=== PATIENT | male | born 1930 | race Caucasian/White ===

== ENCOUNTER 2018-07-09 20:55 | Inpatient (IN) ==
[2018-07-09] MEDS ORDERED: diphenhydrAMINE CAP 25 MG CAPSULE PO PRN (22:44)
[2018-07-09] MEDS ORDERED: ZALEPLON 5 MG CAPSULE PO PRN (22:44)
[2018-07-09] MEDS ORDERED: MAGNESIUM SULF RIDER 2 GM in PREMIX 1 EACH IV PRN (22:44)
[2018-07-09] MEDS ORDERED: ONDANSETRON 4 MG/2 ML VIAL IV PRN (22:44)
[2018-07-09] MEDS ORDERED: MAGNESIUM SULF RIDER 4 GM in PREMIX 1 EACH IV PRN (22:44)
[2018-07-09] MEDS ORDERED: NICOTINE 21 MG/24 HR PATCH TRANSDERM PRN (22:44)
[2018-07-09] MEDS ORDERED: MORPHINE 4 MG/1 ML VIAL IV PRN (22:44)
[2018-07-09] MEDS ORDERED: NITROGLYCERIN SL 0.4 MG TABLET SL PRN (22:44)
[2018-07-09] MEDS ORDERED: ACETAMINOPHEN 325 MG TABLET PO PRN (22:44)
[2018-07-09 23:38] LABS: Basophils % 0.4 % (0.0-0.8); Eosinophils # 0.3 10*3/uL (0.0-0.87); Eosinophils % 3.9 % (0.00-10.9); Hematocrit 38.9 VOL% (42.0-52.0); Hemoglobin 13.2 GM/DL (14.0-18.0); Immature Granulocytes % 0.5 %; Immature Granulocytes Absolute 0.04 #; Lymphocytes # 1.3 10*3/uL (1.4-4.0); Lymphocytes % 17.6 % (21.2-54.2); Mean Corpuscular HGB Conc 33.9 GM/DL (32-36); Mean Corpuscular Hemoglobin 31 PG (27-34); Mean Corpuscular Volume 91.1 FL (87-102); Monocytes # 0.6 10*3/uL (0.11-0.8); Monocytes % 8.6 % (1.7-12.7); Neutrophils # 5.2 10*3/uL (1.4-7.4); Platelet Count 145 T/CUMM (130-400); Red Blood Count 4.27 MC/CUMM (3.8-5.5); Red Cell Distribution Width 12.9 % (9.3-17.3); White Blood Count 7.5 T/CUMM (4-12)
[2018-07-09] MEDS ORDERED: traZODone 50 MG TABLET PO SCH (23:45)
[2018-07-09] MEDS ORDERED: NAPROXEN 500 MG TABLET PO PRN (23:47)
[2018-07-09 23:57] LABS: PT Patient Result 11.2 SECS
[2018-07-10 00:06] LABS: Bilirubin,Total 0.9 MG/DL (0.2-1.0); Calcium 8.2 MG/DL (8.5-10.1); Osmolality,Calculated 280.3 MOS/KG (273-304); Risk Ratio 2.72; Thyroid Stimulating Hormone 7.28 uIU/ml (0.358-3.74); Total Protein 6.8 G/DL (6.4-8.3)
[2018-07-10] MEDS: LISINOPRIL 20 MG TABLET PO SCH ×2 (00:13→09:49)
[2018-07-10] MEDS: ALBUTEROL/IPRATROPIUM 3 ML NEB RESP TX SCH ×3 (01:03→13:22)
[2018-07-10] MEDS: POTASSIUM CHLORIDE 20 MEQ TABLET PO PRN ×4 (01:10→09:49)
[2018-07-10] MEDS ORDERED: PANTOPRAZOLE 40 MG TABLET PO SCH (09:00)
[2018-07-10] MEDS ORDERED: DONEPEZIL 10 MG TABLET PO SCH (09:00)
[2018-07-10] MEDS ORDERED: ENOXAPARIN 40 MG/0.4 ML SYRINGE SUBCUT SCH (09:00)
[2018-07-10] MEDS ORDERED: ASPIRIN EC 81 MG TABLET PO SCH (10:30)
[2018-07-10 11:26] LABS: Troponin I 0.019 NG/ML (0.00-0.045)
[2018-07-10] MEDS ORDERED: traMADol 50 MG TABLET PO SCH (14:30)
[2018-07-10] MEDS ORDERED: ACETAMINOPHEN 325 MG TABLET PO SCH (14:30)
[2018-07-10] MEDS ORDERED: GABAPENTIN 100 MG CAPSULE PO SCH (15:00)
[2018-07-10 16:03] VITALS: BP 146/69
[2018-07-10 17:25] LABS: Apearance,Urine Slightly Hazy (Clear); Bilirubin,Urine Negative (Negative); Blood, Urine Negative (Negative); Glucose,Urine (UA) Negative (Negative); Hyaline Casts,Urine 1 /LPF (0-3); Ketones,Urine Negative (Negative); Mucus,Urine Occasional /LPF (Occasional); Nitrite,Urine Negative (Negative); Protein,Urine Negative; Squamous Epithelial Cell,Urine Occasional /HPF (0-10); Urine Color Yellow (Yellow); Urine Urobilinogen < 2.0 EU/DL (0.2-1.0); WBC,Urine 1 /HPF (0-6)
[2018-07-10] MEDS ORDERED: ATORVASTATIN 20 MG TABLET PO SCH (21:00)
== END 2018-07-10 17:31 | disposition home health service (06) | DRG 313 ==
LOC: N.TELEN 22:17 → SUATTDRO 22:17
PROVIDERS: ADMIT Internal Medicine; ATTEND Internal Medicine

== ENCOUNTER 2019-03-25 09:21 | Inpatient (IN) ==
[2019-03-25 09:59] LABS: Basophils % 0.5 % (0.0-0.8); Eosinophils # 0.3 10*3/uL (0.0-0.87); Eosinophils % 5.4 % (0.00-10.9); Hematocrit 41.1 VOL% (42.0-52.0); Hemoglobin 13.4 GM/DL (14.0-18.0); Immature Granulocytes % 1.1 %; Immature Granulocytes Absolute 0.06 #; Lymphocytes % 17.5 % (21.2-54.2); Mean Corpuscular HGB Conc 32.6 GM/DL (32-36); Mean Corpuscular Volume 94.3 FL (87-102); Mean Platelet Volume 8.6 FL (9.6-12.0); Monocytes % 8.6 % (1.7-12.7); Neutrophils % 66.9 % (38.7-73.9); Platelet Count 207 T/CUMM (130-400); Red Blood Count 4.36 MC/CUMM (3.8-5.5); Red Cell Distribution Width 12.9 % (9.3-17.3); White Blood Count 5.6 T/CUMM (4-12)
[2019-03-25 10:08] LABS: PT Patient Result 10.4 SECS; Partial Thromboplastin Time 26.1 SECS (0-40)
[2019-03-25 10:21] LABS: Alanine Aminotransferase 19 U/L (16-61); Albumin 3.2 G/DL (3.4-5.0); Alkaline Phosphatase 67 U/L (45-117); Aspartate Amino Transferase 16 U/L (0-37); Bilirubin,Total < 0.39 MG/DL (0.2-1.0); Blood Urea Nitrogen 15 MG/DL (7-18); Calcium 8.8 MG/DL (8.5-10.1); Glucose 97 MG/DL (74-106); Osmolality,Calculated 283.1 MOS/KG (273-304); Total Protein 7.4 G/DL (6.4-8.3)
[2019-03-25] MEDS ORDERED: ASPIRIN 325 MG TABLET PO STA (10:42)
[2019-03-25] MEDS ORDERED: ENOXAPARIN 100 MG/ML SYRINGE SUBCUT STA (10:42)
[2019-03-25] MEDS ORDERED: NITROGLYCERIN 2% OINT 1 INCH/GM PACK TOP STA (10:42)
[2019-03-25] MEDS ORDERED: MORPHINE 4 MG/1 ML VIAL IV STA (10:42)
[2019-03-25] MEDS ORDERED: ENOXAPARIN 120 MG/0.8 ML SYRINGE SUBCUT ONE (11:14)
[2019-03-25] MEDS ORDERED: BISACODYL 5 MG TABLET PO PRN (14:29)
[2019-03-25] MEDS ORDERED: DOCUSATE SODIUM 100 MG CAPSULE PO PRN (14:29)
[2019-03-25] MEDS ORDERED: LACTULOSE 20 GM/30 ML UDCUP PO PRN (14:29)
[2019-03-25] MEDS ORDERED: guaiFENesin/DM ER 600-30 MG TABLET PO PRN (14:29)
[2019-03-25] MEDS ORDERED: diphenhydrAMINE CAP 25 MG CAPSULE PO PRN (14:29)
[2019-03-25] MEDS ORDERED: ACETAMINOPHEN 325 MG TABLET PO PRN ×2 (14:29)
[2019-03-25] MEDS: SODIUM CHLORIDE 0.9% 1,000 ML IV SCH (15:41)
[2019-03-25] MEDS ORDERED: traZODone 50 MG TABLET PO SCH (21:00)
[2019-03-25] MEDS: MEMANTINE 10 MG TABLET PO SCH (21:38)
[2019-03-26] MEDS: SODIUM CHLORIDE 0.9% 1,000 ML IV SCH ×2 (04:52→11:53)
[2019-03-26 05:49] LABS: Albumin 2.8 G/DL (3.4-5.0); Bilirubin,Total 0.4 MG/DL (0.2-1.0); Calcium 8.1 MG/DL (8.5-10.1); Osmolality,Calculated 286.8 MOS/KG (273-304); Total Protein 6.2 G/DL (6.4-8.3)
[2019-03-26 05:54] LABS: Basophils % 0.7 % (0.0-0.8); Eosinophils # 0.2 10*3/uL (0.0-0.87); Eosinophils % 5.9 % (0.00-10.9); Hematocrit 34.4 VOL% (42.0-52.0); Hemoglobin 11.7 GM/DL (14.0-18.0); Immature Granulocytes % 1.2 %; Immature Granulocytes Absolute 0.05 #; Lymphocytes # 0.9 10*3/uL (1.4-4.0); Lymphocytes % 21.8 % (21.2-54.2); Mean Corpuscular Volume 93.5 FL (87-102); Mean Platelet Volume 8.8 FL (9.6-12.0); Monocytes % 10.1 % (1.7-12.7); Neutrophils % 60.3 % (38.7-73.9); Platelet Count 178 T/CUMM (130-400); Red Blood Count 3.68 MC/CUMM (3.8-5.5); Red Cell Distribution Width 12.8 % (9.3-17.3)
[2019-03-26] MEDS ORDERED: LISINOPRIL 20 MG TABLET PO SCH (09:00)
[2019-03-26] MEDS ORDERED: PANTOPRAZOLE 40 MG TABLET PO SCH (09:00)
[2019-03-26] MEDS ORDERED: ENOXAPARIN 40 MG/0.4 ML SYRINGE SUBCUT SCH (09:00)
[2019-03-26] MEDS ORDERED: NITROGLYCERIN SL 0.4 MG TABLET SL PRN (11:10)
[2019-03-26] MEDS: MEMANTINE 10 MG TABLET PO SCH (11:53)
[2019-03-26] MEDS ORDERED: ASPIRIN EC 81 MG TABLET PO SCH (12:30)
[2019-03-26 15:49] VITALS: BP 172/77
[2019-03-26] MEDS ORDERED: ATORVASTATIN 20 MG TABLET PO SCH (21:00)
== END 2019-03-26 17:15 | disposition home or self-care (01) | DRG 307 ==
LOC: N.ED 09:21 → N.EDINP 09:21 → SUATTDRO 11:45 → N.EDINP 15:25 → N.2E 15:29
PROVIDERS: ADMIT Family Medicine; ATTEND Internal Medicine